=== PATIENT | male | born 1990 | race Two or more races ===

== ENCOUNTER 2020-04-03 10:00 | Emergency (ER) | payer OTHER ==
[2020-04-03] MEDS: Ketorolac 60 MG/2 ML SDV ONE (10:24)
[2020-04-03] MEDS: Ketorolac 60 MG/2 ML SDV IM ONE (10:24)
--- NOTE | 2020-04-03 12:12 | CR ---
Date of Service: 04/03/20 Clinical Data: LBP - Fell yesterday LUMBAR SPINE: No priors. There is [id number] left convexity scoliosis of the mid lumbar spine. The vertebral bodies are of average height. No acute fracture or dislocation. There is grade 1 anterolisthesis of L5 on S1 with lucencies through the pars interarticularis of L5 consistent with L5 spondylolysis. There is spina bifida occulta at the S1 level. Mild degenerative disk disease in the lower thoracic spine. No other significant findings. [id number] [facility]
--- NOTE | 2020-04-03 20:02 | ER ---
HISTORY OF PRESENT ILLNESS: A 29-year-old male here with complaints of slipping at work yesterday and falling to the floor. This is a Work Comp injury. He works at [employer]. He stated that the floor was wet and he slipped on it. The patient has developed low back pain yesterday from the injury. He stated that his pain yesterday was around 7 or 8/10 and when he woke up this morning, it feels worse. He did take Tylenol one time this morning, taking 4 tablets. He does not feel it has helped him very much. The patient is pointing to the low back when describing the area of pain. He denies any pain, numbness, or tingling radiating down either leg. He also wants to be examined for an infection in the left axilla area that he states has been there for a couple of weeks, but it is slowly getting worse. It is quite painful. It has not been draining. He has been told it is a boil. OBJECTIVE: GENERAL APPEARANCE: The patient is awake and alert. No obvious distress. VITAL SIGNS: Reviewed as listed. Examining the left axilla area reveals significant pain with the patient raising his arm. About 50% of the axilla is inflamed and slightly swollen. There is no blister, pustule, or scabs formation noted, and I do not feel any fluctuance. This area again is quite painful with even light touch. Examining the patient's low back reveals pain involving the paraspinal muscles on both sides of the lumbar spine as well as down the midline area. There is mild swelling of the paraspinal muscle on the right side. There is no bruising or discoloration noted. LABORATORY DATA AND X-RAY: The x-ray of the L-spine was obtained. I do not see any fracture or acute bony abnormality. DIAGNOSES: 1. Contusion injury to low back due to a fall. This is a work comp injury. 2. Boil to left axilla area. TREATMENT PLAN: Augmentin will be given 875 b.i.d. The patient is to apply hot packs frequently for 15 to 20 minutes to the left axilla area. We will give him Toradol 60 mg IM here in the ER and send him home with Toradol tablets for the next 4 days and he is to alternate with Tylenol two extra Strength tablets every 3 hours while awake. The patient is to apply ice packs to the low back area frequently for the next couple of days and then start alternating with heat. I gave him work restrictions of 5 pounds weight limits, minimal bending, twisting, or lifting for 1 week. He is to recheck in the clinic sometime early next week for a recheck, sooner of course penzo ROBERTS/ARIELLE /[id number] MTDD
== END 2020-04-03 10:45 | disposition home or self-care (01) ==
LOC: LB.ED 10:00
DX: S30.0XXA Contusion of lower back and pelvis, initial encounter (principal); L02.422 Furuncle of left axilla; W01.0XXA Fall on same level from slipping, tripping and stumbling without subsequent striking against object, initial encounter; Y99.0 Civilian activity done for income or pay
CPT/HCPCS: 72100; 96372; 99283-25; J1885

== ENCOUNTER 2020-07-10 08:46 | Emergency (ER) | payer SELFPAY ==
[2020-07-10] MEDS: Tetracaine HCl/PF 0.5% 4 ML Bottle EYERT ONE (09:00)
--- NOTE | 2020-07-10 17:35 | ER ---
HISTORY OF PRESENT ILLNESS: A 29-year-old male here with complaints of getting something into his right eye yesterday. He thinks it was a small piece of wood or splinter. He works at a [employer]. He flushed his eye repeatedly. It has become more irritated today. The patient finally decided to come in for evaluation. He does not wear contacts and denies any problems with his vision in his left eye. OBJECTIVE: GENERAL APPEARANCE: The patient is awake and alert. He is holding his right eye with his hand. VITAL SIGNS: Reviewed as listed. HEENT: Two drops of tetracaine were put into the right eye. We gave the patient a couple of minutes for this to take effect. Then, evaluating the right eye reveals no foreign bodies present at this time. The sclerae have multiple dilated vessels. There is a small amount of green matter at the medial canthus area as well. Fluorescein staining was then done. I do not see any corneal abrasion or ulceration. DIAGNOSIS: Conjunctivitis secondary to a foreign body which was previously removed. TREATMENT PLAN: I will start the patient on Gentak eyedrops 1 drop q.i.d. for 7 days. We will send the tetracaine drops home with him. He can use 1 drop every 4 to 6 hours just for 1 day only and then he needs to stop using them. He is to follow up within the next day or 2 if his symptoms are not obviously improving. The patient has no further questions. CRS/MODL /[id number]
== END 2020-07-10 09:23 | disposition home or self-care (01) ==
LOC: LB.ED 08:46
DX: H10.9 Unspecified conjunctivitis (principal)
CPT/HCPCS: 99282; 99283

== ENCOUNTER 2020-09-27 15:50 | Emergency (ER) | payer SELFPAY ==
[2020-09-27 16:12] VITALS: BP 132/88; PULSE 85
[2020-09-27] MEDS: Cyclobenzaprine 10 MG Tab PO ONE (16:31)
[2020-09-27] MEDS: Cyclobenzaprine 10 MG Tab ONE (16:37)
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
--- NOTE | 2020-09-29 12:30 | CR ---
DATE OF SERVICE: 09/27/2020 CLINICAL DATA: Fall. LUMBAR SPINE: Comparison is made to a prior exam dated 04/03/2020. There is minimal left convexity scoliosis mid lumbar spine. There is spina bifida occulta at the S1 level. There is grade 1 anterolisthesis of L5 on S1 with L5 spondylolysis, unchanged from the prior study. There is mild degenerative disc disease in the lower thoracic spine. No other significant findings. No lytic or blastic bone lesions. [id number] [facility]
== END 2020-09-27 17:03 | disposition home or self-care (01) ==
LOC: LB.ED 15:50
DX: S39.012A Strain of muscle, fascia and tendon of lower back, initial encounter (principal); W18.39XA Other fall on same level, initial encounter; Y99.0 Civilian activity done for income or pay
CPT/HCPCS: 72100; 99283-25; A9270-GY

== ENCOUNTER 2020-10-19 11:46 | Emergency (ER) | payer OTHER ==
[2020-10-19] MEDS ORDERED: Ketorolac 10 MG Tab ONE (11:50)
[2020-10-19] MEDS ORDERED: Ketorolac 60 MG/2 ML SDV IM ONE (12:04)
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
== END 2020-10-19 12:50 | disposition home or self-care (01) ==
LOC: LB.ED 11:46
DX: M79.10 Myalgia, unspecified site (principal); V89.2XXA Person injured in unspecified motor-vehicle accident, traffic, initial encounter
CPT/HCPCS: 96372; 99283; A9270; J1885

== ENCOUNTER 2021-01-10 12:07 | Emergency (ER) | payer MEDICAID ==
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
== END 2021-01-10 13:02 | disposition home or self-care (01) ==
LOC: LB.ED 12:07
DX: L02.421 Furuncle of right axilla (principal)
CPT/HCPCS: 10060; 87070; 87077; 87205; 99283-25

== ENCOUNTER 2021-05-15 10:17 | Emergency (ER) | payer MEDICAID ==
[2021-05-15] MEDS ORDERED: Ketorolac 30 MG/ML SDV IM ONE (10:43)
[2021-05-15] MEDS ORDERED: Ketorolac 30 MG/ML SDV ONE (10:55)
[2021-05-15] MEDS ORDERED: Morphine 2 MG/ML SYRINGE IM ONE (11:38)
[2021-05-15] MEDS ORDERED: Morphine 2 MG/ML SYRINGE ONE (11:44)
[2021-05-15] MEDS ORDERED: Acetaminophen/oxyCODONE 325-5 MG Tab PO PRN (12:15)
[2021-05-15] MEDS ORDERED: Acetaminophen/oxyCODONE 325-5 MG Tab ONE (12:27)
== END 2021-05-15 13:05 | disposition home or self-care (01) ==
LOC: LB.ED 10:17
DX: S00.432A Contusion of left ear, initial encounter (principal); S00.83XA Contusion of other part of head, initial encounter; W10.9XXA Fall (on) (from) unspecified stairs and steps, initial encounter
CPT/HCPCS: 70450; 71250; 72125; 74176; 96372; 99283-25; 99284; A9270-GY; J1885; J2270

== ENCOUNTER 2021-07-16 16:21 | Emergency (ER) | payer MEDICAID | END 2021-07-16 17:07 | disposition home or self-care (01) | LOC: LB.ED 16:21 | DX: S61.211A Laceration without foreign body of left index finger without damage to nail, initial encounter (principal); W26.8XXA Contact with other sharp object(s), not elsewhere classified, initial encounter; Y92.009 Unspecified place in unspecified non-institutional (private) residence as the place of occurrence of the external cause | CPT/HCPCS: 99282 ==

== ENCOUNTER 2021-08-12 11:55 | Emergency (ER) | payer MEDICAID | END 2021-08-12 12:41 | disposition home or self-care (01) | LOC: LB.ED 11:55 | DX: L02.413 Cutaneous abscess of right upper limb (principal) | CPT/HCPCS: 99281; 99282 ==

== ENCOUNTER 2021-10-12 12:49 | Emergency (ER) | payer MEDICAID | END 2021-10-12 13:20 | disposition home or self-care (01) | LOC: LB.ED 12:49 | DX: S93.402A Sprain of unspecified ligament of left ankle, initial encounter (principal); X50.1XXA Overexertion from prolonged static or awkward postures, initial encounter | CPT/HCPCS: 73610-LT; 99281; 99283 ==

== ENCOUNTER 2021-12-09 09:40 | Emergency (ER) | payer MEDICAID | END 2021-12-09 10:11 | disposition home or self-care (01) | LOC: LB.ED 09:40 | DX: K02.9 Dental caries, unspecified (principal) | CPT/HCPCS: 99281; 99282 ==

== ENCOUNTER 2022-01-17 11:04 | Emergency (ER) | payer MEDICAID | END 2022-01-17 11:34 | disposition home or self-care (01) | LOC: LB.ED 11:04 → SUPCPDRO 11:04 → LB.ED 11:34 | DX: K02.9 Dental caries, unspecified (principal); I10 Essential (primary) hypertension; Z79.899 Other long term (current) drug therapy | CPT/HCPCS: 99281; 99282 ==

== ENCOUNTER 2022-02-25 12:17 | Emergency (ER) | payer MEDICAID ==
[2022-02-25] MEDS ORDERED: Lidocaine 1% PF 2 ML SDV INJECT ONE (15:47)
[2022-02-25 15:55] VITALS: BP 152/75; PULSE 85
== END 2022-02-25 15:30 | disposition home or self-care (01) ==
LOC: LB.ED 12:17
DX: L02.411 Cutaneous abscess of right axilla (principal)
CPT/HCPCS: 10060; 87070; 87075; 87205; 99282-25

== ENCOUNTER 2022-11-27 10:35 | Emergency (ER) | payer MEDICAID ==
[2022-11-27 10:56] VITALS: BP 149/92; PULSE 68
== END 2022-11-27 11:50 | disposition home or self-care (01) ==
LOC: LB.ED 10:35
DX: T16.2XXA Foreign body in left ear, initial encounter (principal); I10 Essential (primary) hypertension; E66.9 Obesity, unspecified; Z79.899 Other long term (current) drug therapy; Z68.36 Body mass index [BMI] 36.0-36.9, adult
CPT/HCPCS: 69200; 99282

== ENCOUNTER 2023-04-08 15:31 | Emergency (ER) | payer SELFPAY ==
[2023-04-08] MEDS: Ketorolac 60 MG/2 ML SDV IM ONE (16:24)
[2023-04-08] MEDS: Cyclobenzaprine 10 MG Tab PO ONE (16:57)
[2023-04-08] MEDS: Ketorolac 60 MG/2 ML SDV ONE (16:58)
[2023-04-08] MEDS: Cyclobenzaprine 10 MG Tab ONE (16:58)
== END 2023-04-08 17:24 | disposition home or self-care (01) ==
LOC: LB.ED 15:31
DX: S29.9XXA Unspecified injury of thorax, initial encounter (principal); S39.91XA Unspecified injury of abdomen, initial encounter; W11.XXXA Fall on and from ladder, initial encounter
CPT/HCPCS: 72128; 72131; 74176; 96372; 99285; A9270-GY; J1885

== ENCOUNTER 2023-05-18 10:57 | Emergency (ER) | payer SELFPAY | END 2023-05-18 11:42 | disposition home or self-care (01) | LOC: LB.ED 10:57 | DX: L72.0 Epidermal cyst (principal); I10 Essential (primary) hypertension; F17.210 Nicotine dependence, cigarettes, uncomplicated; E66.9 Obesity, unspecified; Z68.35 Body mass index [BMI] 35.0-35.9, adult; Z79.899 Other long term (current) drug therapy | CPT/HCPCS: 99283 ==

== ENCOUNTER 2024-10-22 12:44 | Emergency (ER) | payer MEDICAID | END 2024-10-22 14:10 | LOC: LB.ED 12:44 | DX: E11.649 Type 2 diabetes mellitus with hypoglycemia without coma (principal); I10 Essential (primary) hypertension | CPT/HCPCS: 82947; 99284; 99285; A9270-GY ==